=== PATIENT | female | born 1985 | race American Indian/Alaskan Native ===

== ENCOUNTER 2021-10-15 08:44 | Emergency (ER) | payer SELFPAY ==
--- NOTE | 2021-10-15 08:47 | Emergency Department Report ---
ED Female HPI - General Stated complaint: CRAMPS/BACK PAIN Time Seen by Provider: 10/15/21 08:45 Source: patient Mode of arrival: Ambulatory Limitations: No Limitations - History of Present Illness Initial comments: 36 yo comes to ER from psych facility - she started her periods is having heavy cramps and discharge. She reports these signs and symptoms when she gets BV. Not concerned for STI. No fever. no chills. no back pain. MD Complaint: vaginal bleeding -: Gradual Severity scale (0 -10): 3 Quality: cramping Consistency: constant Improves with: none Worsens with: none Are you Now?: No Associated Symptoms: denies other symptoms - Related Data Sexually active: Yes Previous Rx's Medication Instructions Recorded Last Taken Type metroNIDAZOLE [Flagyl] 500 mg PO Q12HR #20 tab 10/15/21 Unknown Rx ED Review of Systems ROS: Stated complaint: CRAMPS/BACK PAIN Other details as noted in HPI Comment: All other systems reviewed and negative ED Past Medical Hx - Past Medical History Previous Medical History?: Yes Hx Psychiatric Treatment: Yes - Surgical History Past Surgical History?: No - Family History Family history: no significant - Social History Smoking Status: Never Smoker Substance Use Type: Marijuana - Medications Home Medications: Home Medications Medication Instructions Recorded Confirmed Last Taken Type metroNIDAZOLE [Flagyl] 500 mg PO Q12HR #20 tab 10/15/21 Unknown Rx ED Physical Exam - General Limitations: No Limitations General appearance: alert, in no apparent distress - Head Head exam: Present: atraumatic, normocephalic - Eye Eye exam: Present: normal appearance - ENT ENT exam: Present: mucous membranes moist - Neck Neck exam: Present: normal inspection - Respiratory Respiratory exam: Present: normal lung sounds bilaterally. Absent: respiratory distress - Cardiovascular Cardiovascular Exam: Present: regular rate, normal rhythm. Absent: systolic murmur, diastolic murmur, rubs, gallop - GI/Abdominal GI/Abdominal exam: Present: soft, normal bowel sounds - Extremities Exam Extremities exam: Present: normal inspection - Back Exam Back exam: Present: normal inspection - Neurological Exam Neurological exam: Present: alert, oriented X3 - Psychiatric Psychiatric exam: Present: normal affect, normal mood - Skin Skin exam: Present: warm, dry, intact, normal color. Absent: rash ED Medical Decision Making - Medical Decision Making Labs 10/15/21 08:59 Urine Color Straw Urine Turbidity Clear Urine pH 7.0 Ur Specific [place] 1.010 Urine Protein <15 mg/dl Urine Glucose (UA) Negative Urine Ketones Negative Urine Blood Large A Urine Nitrite Negative Ur Reducing Substances Not Reportable Urine Bilirubin Negative Urine Ictotest Not Reportable Urine Urobilinogen < 2.0 Ur Leukocyte Esterase Negative Urine WBC (Auto) 1.0 Urine RBC (Auto) 103.0 U Epithel Cells (Auto) < 1.0 Urine Mucus Few Urine HCG, Qual Negative normal VS as documented manually by RN ua noted preg neg dc home with dc plan of care including OTC meds and flagyl for her menses- she has been given med clearance to return to psych facility. pt verbalizes understanding of plan of care. - Differential Diagnosis ro preg-uti Critical care attestation.: If time is entered above; I have spent that time in minutes in the direct care of this critically ill patient, excluding procedure time. ED Disposition Clinical Impression: Menses painful, Medical clearance for psychiatric admission, Bacterial vaginosis Disposition: HOME / SELF CARE / HOMELESS Is pt being admited?: No Does the pt Need Aspirin: No Condition: Stable Instructions: Dysmenorrhea, [id number], Bacterial Vaginosis (ED) Additional Instructions: [id number] Motrin or Tylenol for pain. Medication as ordered today until gone. Follow-up with [facility]. Have given you referral below. Prescriptions: metroNIDAZOLE [Flagyl] 500 mg PO Q12HR #20 tab Referrals: GEO BECK MD [Staff Physician] - 3-5 Days Forms: STI Treatment and Prevention, Work/School Release Form(ED) Time of Disposition: 11:16
[2021-10-15 10:16] LABS: HCG Qualitative,Urine Negative (Negative)
[2021-10-15 10:40] LABS: Mucus,Urine FEW /HPF
[2021-10-15 11:00] LABS: Color,Urine Straw (Yellow)
[2021-10-15 11:01] LABS: Bilirubin,Urine Negative (Negative); Blood,Urine Large (Negative); Protein,Urine <15 mg/dL mg/dL (Negative); Urobilinogen,Urine < 2.0 mg/dL (<2.0)
== END 2021-10-15 13:25 | disposition home or self-care (01) ==
LOC: ED 08:44
DX: N94.6 Dysmenorrhea, unspecified (principal); N76.0 Acute vaginitis; B96.89 Other specified bacterial agents as the cause of diseases classified elsewhere; Z13.30 Encounter for screening examination for mental health and behavioral disorders, unspecified
CPT/HCPCS: 81001; 81025; 99283